=== PATIENT | male | born 1990 | race Caucasian/White ===

== ENCOUNTER 2017-02-12 11:03 | Emergency (ER) | payer MEDICAID ==
[~2017-02-12] VITALS: Ht 180.3 cm; Wt 85.5 kg
[2017-02-12 11:06] VITALS: Ht 180.3 cm; Wt 85.5 kg
[2017-02-12] MEDS ORDERED: IBUPROFEN 600 MG TAB PO ONE (14:00)
[2017-02-12] MEDS ORDERED: HYDROCODONE/APAP (5/325) TAB PO ONE (14:00)
--- NOTE | 2017-02-12 14:22 | RADRPT ---
PROCEDURE: XR Hand. CLINICAL INDICATION: Pain TECHNIQUE: AP oblique and lateral views of the right hand were obtained. COMPARISON: No prior studies are available for comparison. FINDINGS: There is normal mineralization. No acute fracture or dislocation is seen. There are no significant degenerative changes. There is soft tissue swelling in the region of the middle phalanx of the middle finger. RPTAT: AA IMPRESSION: Soft tissue swelling in the middle finger. No acute fracture. .Damien Dunbar MD, MD Date Time Electronically viewed and signed by .Damien Dunbar MD, on 02/12/2017 14:21 .S/
[2017-02-12] MEDS ORDERED: LIDOCAINE 1% (MDV) 20 ML INJ SC ONE (15:30)
[2017-02-12] MEDS ORDERED: CEPH-443 PO (15:34)
[2017-02-12] MEDS ORDERED: IBUP-1542 PO (15:34)
--- NOTE | 2017-02-12 16:11 | ERD ---
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 He was moving a large amount of cement , and it had pushed against his right fourth and third digits. He is created purple bruising, hematoma on the right third digit, and the fourth digit has a laceration. He does not recall his last tetanus shot. He denies paresthesias or weakness. ROS All systems reviewed and are negative except as per history of present illness. Medications Home Meds Active Scripts Ibuprofen* (Motrin*) 600 Mg Tab, 600 MG PO Q6, #30 TAB Prov:ANDREEA STEVENS PA-C 02/12/17 Cephalexin* (Keflex*) 500 Mg Capsule, 500 MG PO QID for 5 Days, CAP Prov:ANDREEA STEVENS PA-C 02/12/17 Allergies Allergies: Coded Allergies: No Known Allergy (Unverified , 02/12/17) PMhx/Soc Medical and Surgical Hx: pt denies Medical Hx, pt denies Surgical Hx Hx Alcohol Use: No Hx Substance Use: No Hx Tobacco Use: No Smoking Status: Never smoker Physical Exam Vitals Vital Signs Date Time Temp Pulse Resp B/P Pulse Ox O2 Delivery O2 Flow Rate FiO2 02/12/17 11:06 99.0 67 16 164/107 100 Physical Exam General: Well-developed, well-nourished. The patient appears in no acute distress. HEENT: Head is normocephalic, atraumatic. No scleral icterus. Neck: Supple. Nontender. Lungs: Clear to auscultation. Normal air movement. Heart: Regular rate and rhythm. S1 and S2 are normal. No murmurs, gallops, or rubs. Abdomen: Nondistended. Extremities: A 1.5 cm hematoma that is appreciated on the volar aspect of the middle phalanx of the right third digit. She has full range of motion at the DIP, PIP and MCP joint, patient also does sustain a 1.5 cm laceration to the lateral aspect of the right fourth digit. There is no active bleeding, the laceration is not deep, there is no tendon, foreign body or active bleeding seen. She has full range of motion at the DIP, PIP and MCP joint of the right fourth digit. Neurologic: Alert and oriented 3. No focal deficits. Normal speech and gait. Skin: Normal turgor. No rash or lesions. Results 24 hrs Current Medications Medications (Trade) Dose Ordered Sig/Florencio Route PRN Reason Start Time Stop Time Status Last Admin Dose Admin Acetaminophen/ Hydrocodone Bitart (Tatum (5/325)) 1 tab ONCE ONCE PO 02/12/17 14:00 02/12/17 14:01 DC 02/12/17 13:50 Ibuprofen (Motrin) 600 mg ONCE ONCE PO 02/12/17 14:00 02/12/17 14:01 DC 02/12/17 13:50 Lidocaine (Xylocaine 1% (Mdv) 20 ml) 20 ml ONCE ONCE SC 02/12/17 15:30 02/12/17 15:31 DC DIAGNOSTIC IMAGING REPORT Patient: DIAZ HAAS : 1990 Age: 26 Sex: M MR #: [id number] DOS: 02/12/17 1341 Ordering MD: ANDREEA STEVENS PA-C Location: [facility] Room/Bed: PROCEDURE: XR Hand. CLINICAL INDICATION: Pain TECHNIQUE: AP oblique and lateral views of the right hand were obtained. COMPARISON: No prior studies are available for comparison. FINDINGS: There is normal mineralization. No acute fracture or dislocation is seen. There are no significant degenerative changes. There is soft tissue swelling in the region of the middle phalanx of the middle finger. RPTAT: AA IMPRESSION: Soft tissue swelling in the middle finger. No acute fracture. .Damien Dunbar MD, MD Date Time Electronically viewed and signed by .Damien Dunbar MD, MD on 02/12/2017 14: 21 .S/ CC: ANDREEA STEVENS PA-C Procedures/MDM Laceration Repair by me: She was verbally consented Anesthesia: 1% lidocaine locally Location: Right fourth digit Tendon/Joint/Nerves: No injury Foreign body: None detected after copious irrigation and exploration Technique: Simple Interrupted Sutures of 3 using 4- 0 Ethilon Complexity: No subcutaneous sutures/mucosal repair/ edge excision Post Closure Length: 0.5 cm Patient's bleeding was easily controlled in the department and there is no indication of anemia. No evidence of compartment syndrome, neurologic injury, vascular injury, open joint, tendon laceration, or foreign body. Patient is appropriate for outpatient follow up. 48 hour wound check. Scar minimization instructions given. Hematoma incision and Drainage with irrigation by me: She was verbally consented Location: Right third digit Anesthesia: Local 1% Lidocaine Technique: 18-gauge needle was introduced to the distal aspect of the hematoma, a significant amount of blood was drained. Packing: None Complications: Neurovascularly intact post procedure 48 hour wound check. Scar minimization instructions given. Patient's skin symptoms have stabilized while they have been evaluated in the department and are appropriate for outpatient care and work up. Exam and w/u not consistent w/ sepsis, deep space infection, or foreign body. Decision makin-year-old male sustained a laceration to his right fourth digit, and a hematoma to the right third digit. The hematoma was drained, sutures were placed the laceration. There is no evidence of any tendon injury, ligamental injury, tenosynovitis, open fracture, dislocation. Departure Diagnosis: Primary Impression: Laceration of finger Additional Impression: Traumatic hematoma of finger Condition: Good Patient Instructions: Hematoma, Laceration, All Additional Instructions: WOUND CHECK:CONSULTE A BLAKELY MDDECLAN EN 2 narayan para ivelisse BLAKELY HERIDA. SUTURE REMOVAL:CONSULTE A BLAKELY ALYSSIA PARA SACAR BLAKELY PUNTOS-7 narayan. ANDREEA STEVENS PA-C Feb 12, 2017 16:11
== END 2017-02-12 16:00 | disposition home or self-care (01) ==
LOC: FTE 11:03
DX: S61.214A Laceration without foreign body of right ring finger without damage to nail, initial encounter (principal); S60.131A Contusion of right middle finger with damage to nail, initial encounter; W26.8XXA Contact with other sharp object(s), not elsewhere classified, initial encounter; Y92.9 Unspecified place or not applicable
CPT/HCPCS: 11740; 12001; 73130; Z7502; Z7610